=== PATIENT | male | born 1950 | race Two or more races ===

== ENCOUNTER 2020-07-11 08:13 | Day surgery (SDC) | payer OTHER | END 2020-07-11 13:45 | disposition home or self-care (01) | LOC: AMB-ENDOS 08:13 | PROVIDERS: ATTEND Colon & Rectal Surgery | DX: K62.1 Rectal polyp (principal); K64.8 Other hemorrhoids; Z20.822 Contact with and (suspected) exposure to COVID-19; Z12.11 Encounter for screening for malignant neoplasm of colon ==